=== PATIENT | female | born 1965 | race Caucasian/White ===

== ENCOUNTER 2020-01-14 16:53 | Outpatient (RCR) | payer BC, SELFPAY ==
--- NOTE | 2020-01-17 07:28 | PTOPEVAL ---
Thank you for referring Xiomara Morin to [facility].? The patient is scheduled to be seen for therapy? __2__x/week for 4 weeks. Please review, sign, date and return this plan of care JONO. I agree with and certify that the following plan of care is medically necessary. Referring Physician Date Admitting Provider: Attending Provider: PHYSICIAN NOT ON STAFF Referring Provider: *PT Outpatient Evaluation Start: 01/14/20 16:59 Freq: Status: Active Protocol: Document 01/14/20 16:59 SARY (Rec: 01/14/20 17:15 SARY [email or web address]) Therapy Assessment Status Assessment Status Assessment Status Evaluation Evaluation Information Problem Diagnosis cervicalgia Onset 07/15/19 Subjective Information Pt. reports neck pain began Query Text:As Reported By Patient/ about 6 months ago. She Family describes pain in the left upper trap and into the side of the neck. She reports that she has hx of OA, disc bulging and stenosis. She reports that she has a constant ache in the neck. 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 She reports her goal is to decrease pain. Prior Level of Function Activity Level (Last 3 Months) Occupation hairdresser Hand Dominance Left Activity of Daily Living Ability Independent Indoor/Home Mobility Independent Community Mobility Independent Stairs Ability Independent Functional Cognition (Planning, Shopping Independent , Taking Medications) Cooking Yes Cleaning Yes Laundry Yes Shopping Yes Driving Yes Pain Assessment Pain Scale Pain Scale Used Numeric (1 - 10) Self Report Pain Assessment Left Neck Reported Pain Level 7 Pain Description Aching,Pulling Pain Radiation Left Shoulder Pain Frequency Continuous Pain Aggravating Factors Exercise/Activity Pain Score Pain Score 7: Self Report Interventions Used Interventions Used By Clinicians Electrical Stimulation, Exercise,Heat,Manual Therapy Techniques Cervical and Lumbar ROM Cervical ROM Cervical Flexion (0-60) 50 Query Text:Active in Degrees Cervical Exten
--- NOTE | 2020-02-14 17:44 | PTOPEVAL ---
Thank you for referring Xiomara Morin to [facility].? I agree with and certify that the following plan of care is medically necessary. Referring Physician Date Admitting Provider: Attending Provider: PHYSICIAN NOT ON STAFF Referring Provider: *PT Outpatient Evaluation Start: 01/14/20 16:59 Freq: Status: Active Protocol: Document 02/14/20 17:29 SARY (Rec: 02/14/20 17:44 SARY [email or web address]) Therapy Assessment Status Assessment Status Assessment Status Discharge Evaluation Information Problem Diagnosis cervicalgia Onset 07/15/19 Subjective Information Pt. reports that her pain Query Text:As Reported By Patient/ still persisit. She noted Family initial relief with treatment but pain still continues to fluctuate. She states that she will undergo MRI and meets with her doctor next week to discuss injections. Pain Assessment Pain Scale Pain Scale Used Numeric (1 - 10) Self Report Pain Assessment Left Neck Reported Pain Level 7 Pain Score Pain Score 7: Self Report Interventions Used Interventions Used By Clinicians Electrical Stimulation, Exercise,Heat Cervical and Lumbar ROM Cervical ROM Cervical Flexion (0-60) 58 Query Text:Active in Degrees Cervical Extension (0-70) 65 Query Text:Active in Degrees Cervical Lateral Flexion Right (0-50) 45 Query Text:Active in Degrees Cervical Lateral Flexion Left (0-50) 45 Query Text:Active in Degrees Cervical Rotation Right (0-90) 80 Query Text:Active in Degrees Cervical Rotation Left (0-90) 80 Query Text:Active in Degrees Upper Extremity Muscle Strength Testing Scapular/Shoulder Bilateral Scapular Retraction - Middle Trapezius 4+ Good + Scapular Retraction - Lower Trapezius 4+ Good + Shoulder Flexion Strength 5 Normal Shoulder Abduction Strength 5 Normal Shoulder Medial Rotation Strength 5 Normal Shoulder Lateral Rotation Strength 5 Normal Elbow/Forearm Bilateral Elbow Flexion Strength 5 Normal Elbow Extension Strength 5 Normal Palpation Assessment Palpation Palpation Pt. continues to report TTP of the area of the cervical paraspinals and into the left upper trap General Exercise General Exercises Exercise Description -reviewed pt. HEP and provided Query Text:Record Sets, Reps, instruction for additonal Resistance, and Position postural exercise using the
== END 2020-02-14 13:24 | disposition home or self-care (01) ==
LOC: CHSPT 16:53
DX: M54.2 Cervicalgia (principal)
CPT/HCPCS: 97012; 97014; 97110; 97140; 97161; G0283

== ENCOUNTER 2023-10-31 12:57 | Outpatient (RCR) | payer BC, SELFPAY ==
--- NOTE | 2023-10-31 13:42 | OPREHPOC ---
Outpatient Therapy Plan of Care This is a Multidisciplinary Plan of Care that may contain components documented by all disciplines (PT, OT, and ST.) PT Problem 1 PT Problem #1 Knowledge Deficit PT Goal 1 Goal The patient will be independent in a home exercise program. Progress Met PT Problem 2 PT Problem #2 Impaired Vestibular Syste PT Goal 1 Goal 1. The patient will demonstrate a negative Nilsa Hallpike and Supine Roll test indicating resolved positional vertigo. Progress Met PT Problem 3 PT Problem #3 Impaired Functional Mobil
--- NOTE | 2023-10-31 13:42 | PTOPEVAL1 ---
Assessment and note entered by Charline Siegel, PT Evaluation Information Assessment Status Evaluation ICD-10 Condition Codes (PT) BPPV right ear H81.11 Other ICD-10 Condition Codes ( 10/21/23 PT) Subjective Information Leticia Morin reports she started having vertigo on 10/21/23 while vacuuming. She denies previous sinus and ear infections prior to the onset of vertigo. She has a history of motion sickness and cervical issues though. She went to the ER on and had testing for stroke and heart conditions and it was ruled out. On 10/22/23, she saw ENT and had the Remedios maneuver performed for her right side. She slept upright the first two nights and then laid on piled up pillows for 5 days afterwards. She is now able to sleep without symptoms, shower without sitting down, and perform all daily and work tasks without issues. She woke up on her right side today without any vertigo. She has not had any vertigo symptoms the last few days. Reported Pain Level Pain Score 0: Self Report Assessment PT Clinical Summary Xiomara Morin presents with positional vertigo that began on 10/21/23. She was able to see ENT on and the Remedios maneuver was performed. Since that time, her symptoms have resolved and she is no longer experiencing vertigo. She objectively demonstrates negative positional vertigo tests today and has normal VOR. She was instructed in the home Remedios maneuver for if symptoms return. She will be discharged to home exercises unless symptoms return. Plan of Care Interventions Patient/Caregiver Educati,Other Other Interventions Remedios maneuver PT Services Indicated No Treatment Frequency and Discharge unless symptoms return over the next Duration week. These treatments will address the objective and functional deficits as defined above. The patient will be advanced safely and appropriately in order for the patient to progress towards his/her prior level of function. Additional exercises will be introduced and as well as a comprehensive home exercise program upon discharge, if needed, ?to ensure carryover of functional gains achieved in the clinic. This treatment plan has been reviewed and agreement upon by the patient.
== END 2024-01-29 23:59 | disposition home or self-care (01) ==
LOC: CHSPT 12:57
DX: H81.10 Benign paroxysmal vertigo, unspecified ear (principal)
CPT/HCPCS: 97110; 97161

== ENCOUNTER 2024-11-08 15:47 | Outpatient (RCR) | payer BC, SELFPAY ==
--- NOTE | 2024-11-08 17:05 | OPREHPOC ---
Outpatient Therapy Plan of Care This is a Multidisciplinary Plan of Care that may contain components documented by all disciplines (PT, OT, and ST.) PT Problem 1 PT Problem #1 Knowledge Deficit PT Goal 1 Goal / Goal Update independent and compliant with HEP Target Visit 4 PT Problem 2 PT Problem #2 Pain PT Goal 1 Goal / Goal Update no plantar foot pain Target Visit 8 PT Problem 3 PT Problem #3 Impaired Functional Mobility PT Goal 1 Goal / Goal Update no tenderness to palpation of the plantar foot. LEFS to display 0% functional deficits. patient to ambulate 1 hour without pain. patient to report no pain in the L foot waking up in the morning. Target Visit 8
--- NOTE | 2024-11-08 17:05 | PTOPEVAL1 ---
Assessment and note entered by JT File, PT Evaluation Information Assessment Status Evaluation ICD-10 Condition Codes (PT) Pain in left ankle and joints of left foot M25.572 Onset 11/03/2024 Subjective Information patient has had xray and ultrasound of the L foot. she reports she was diagnosed with plantar fasciitis. she reports she wears a night splint on the ankle to improve flexibility. she also wears a plantar fasciitis band around the L midfoot while up and walking. she reports she has pain right on the bottom of the L foot along the heel. she reports she feels the worst first thing in the morning, or after sitting down for long time. Reported Pain Level Pain Score 4: Self Report Assessment PT Clinical Summary mrs. rodriguez is a 58 yo woman who presents to skilled PT services for evaluation and treatment of L plantar foot pain. he signs and symptoms are consistent with plantar fasciitis of the L foot. pain is reported worst after long bouts of rest, and with palpation of the plantar foot. continued skilled PT is indicated to improve her objective/ functional deficits and progress towards a return to her prior level functional activity performance /quality of life. Plan of Care Interventions Electrical Stimulation,Gait Training,Hot Pack/Cold Pack,Manual Therapy,Neuro Re-education,Patient/ Caregiver Education,Therapeutic Activities, Therapeutic Exercise,Ultrasound,Other Other Interventions dry needling PT Services Indicated Yes Treatment Frequency and 2x weekly for 8 visits Duration These treatments will address the objective and functional deficits as defined above. The patient will be advanced safely and appropriately in order for the patient to progress towards his/her prior level of function. Additional exercises will be introduced and as well as a comprehensive home exercise program upon discharge, if needed, ?to ensure carryover of functional gains achieved in the clinic. This treatment plan has been reviewed and agreement upon by the patient.
--- NOTE | 2024-12-03 13:14 | OPREHPOC ---
Outpatient Therapy Plan of Care This is a Multidisciplinary Plan of Care that may contain components documented by all disciplines (PT, OT, and ST.) PT Problem 1 PT Problem #1 Knowledge Deficit PT Goal 1 Goal / Goal Update independent and compliant with HEP Target Visit 4 Progress Met PT Problem 2 PT Problem #2 Pain PT Goal 1 Goal / Goal Update no plantar foot pain Target Visit 8 Progress Not Met PT Problem 3 PT Problem #3 Impaired Functional Mobility PT Goal 1 Goal / Goal Update no tenderness to palpation of the plantar foot. LEFS to display 0% functional deficits. patient to ambulate 1 hour without pain. patient to report no pain in the L foot waking up in the morning. Target Visit 8 Progress Not Met
--- NOTE | 2024-12-03 13:14 | PTOPDC ---
Assessment and note entered by JT File, PT Evaluation Information Assessment Status Discharge ICD-10 Condition Codes (PT) Pain in left ankle and joints of left foot M25.572 Onset 11/03/2024 Subjective Information patient reports she really tried to limit her walking these past few days. she reports she did still have to stand at work, but otherwise opted to ride her bike instead of walk. she reports she continues to have pain and tenderness in the foot, and that after long bouts of rest it is increased still. Reported Pain Level Pain Score 2: Self Report Assessment PT Clinical Summary mrs. rodriguez has been compliant with her HEP over the past 8 skilled PT visits. however, she continues to have pain and deficits in functional acctivities. we have tried exercise, passive stretching, ultrasound, manual therapy techniques, and dry needling. however, nothing has been able to relieve this pain for more than a short bout of time. at this time, we will DC skilled PT, and patient was advised to return to her referring physician for follow up and potential injection. Plan of Care PT Services Indicated Yes
== END 2024-12-03 20:00 | disposition home or self-care (01) ==
LOC: CHSPT 15:47
DX: M72.2 Plantar fascial fibromatosis (principal); M25.572 Pain in left ankle and joints of left foot
CPT/HCPCS: 97035; 97110; 97112; 97140; 97161